=== PATIENT | female | born 1975 | race Caucasian/White ===

== ENCOUNTER → 2020-05-11 08:23 | Outpatient (CLI) | payer OTHER, SELFPAY ==
[2020-05-11 11:25] LABS: COVID19 -Nasal RAPID Negative (Negative)
--- NOTE | 2020-05-14 13:29 | CM.DANOTE ---
DCP: Case received, EMR reviewed and met with patient. Introduced self and role. Was able to obtain information from patient regarding her baseline activity level prior to hospitalization. DCP assessment completed with information currently available. Patient is a 45 year old female who admitted yesterday morning to the care of the orthopedic team. PCP: Dr. Youngblood. Payer: confirmed: [facility]. Patient came to the hospital via private vehicle for a surgical procedure. She had L4-5 Posteo-lateral and interbody fusion. Patient has history of spinal stenosis. Met with patient in her room. She was sitting up on the edge of the bed, Rahul Morales was in the room working with her, and , Curly was also present, and stated that he will be taking a couple of weeks off of work to help out. Patient is independent, stated, my pain is mostly dull. She resides in [place], and is employed at the [employer]. P: Patient is to be discharged home today. Tasha Coates RN/Pollution Control Chemist
== END ==
PROVIDERS: PCP Family Medicine; Visit Provider Physician Assistant
DX: Z11.59 Encounter for screening for other viral diseases (principal)
CPT/HCPCS: 87635

== ENCOUNTER 2020-05-13 10:49 | Day surgery (SDC) | payer OTHER, SELFPAY ==
[2020-05-12 07:19] VITALS: BMI 25.4
[2020-05-13] VITALS (20 sets, daily range): BP systolic 93–125; BP diastolic 50–80; PULSE 68–93; RESP 10–18; TEMP 36.2–37.6; O2SAT 92–100; BMI 25.7
--- NOTE | 2020-05-13 | DI.RAD.S_ITS ---
PROCEDURE: XR LUMBAR SPINE 2-3V INDICATIONS: L4-5 TLIF TECHNIQUE: A total of 2 views of the lumbar spine were acquired. COMPARISON: None. FINDINGS: Bones: 5 owg-hlo-cynyvin vertebrae are present. There is normal bony alignment maintained by transverse pedicle screws and vertical fixation rods crossing L4-L5. Additionally an interbody disc cage prosthesis is present at this level.. No vertebral body compression fractures. No suspicious bony lesions. Soft tissues: Overlying bowel gas pattern is normal. No suspicious soft tissue calcifications. IMPRESSION: Excellent anatomic alignment established after posterior fusion procedure at L4-L5 and also interbody cage disc prosthesis. Dictated by: Justin Magallon M.D. on 05/13/2020 at 16:40 Approved by: Justin Magallon M.D. on 05/13/2020 at 16:41
[2020-05-13] MEDS: LACTATED RINGERS 1,000 ML 42 ML IV ×2 (11:15→14:30)
--- NOTE | 2020-05-13 12:29 | PM.PREOP ---
Pre-operative Note COVID-19 COVID-19 status: Negative Result date/Date tested (Pos, Neg/Pending): 05/11/20 Interval Note History & Physical reviewed/Exam performed by Physician: Yes Changes to H&P: No
[2020-05-13] MEDS: CEFAZOLIN 2 GM/100 ML FROZ.PIGGY IV ×2 (13:06→21:09)
--- NOTE | 2020-05-13 13:28 | SUR.OPER ---
Prone on spine table, head in foam head support, padded chest and pelvic supports, gel pad at knees, lower legs supported by pillows; nipples, genitalia and toes free of pressure, arms secured on foam padded arm boards at <90 degrees abduction. Tape over blanket at thigh secured to table.
[2020-05-13] MEDS: BUPIVACAINE 0.25% W/ EPI (PF) 10 ML VIAL 20 ML INJ (13:32)
[2020-05-13] MEDS: BUPIVACAINE LIPOSOME 266 MG/20 ML VIAL INJ (13:32)
--- NOTE | 2020-05-13 15:21 | P.OP_ITS ---
Operative Date/Time/Diagnoses Date of procedure: 05/13/20 Time of procedure: 12:21 Pre-op diagnosis: 1. L4-5 spinal stenosis 2. L4-5 spondylosis with radiculopathy Post-op diagnosis: same Procedure & Clinicians Procedure: 1. L4-5 Postero-lateral and posterior interbody fusion 2. L4-5 interbody cage placement. 3. L4-5 decompressive laminectomy with bilateral facetecomies 4. L4-5 Posterior non-segmental instrumentation 5. Wetmore of bone marrow from iliac crest 6. Utilization of microsurgical technique and operating microscope Same procedure as scheduled: Yes Indications: Patient has been having chronic back pain and worsening lumbar radiculopathy. Patient failed multiple conservative management with worsening pain weakness and numbness in her lower extremity. Patient has been having difficulty performing activity of daily living. After discussing risks benefits of treatment options, patient elected proceed with surgery. Surgeon: Sil Wynn Studio Couch Frame Builder: Lesly Velasquez Click Yes if Unassisted: No Anesthesia Type: General Operative Notes Closure Type: primary Specimen(s): none sent Prosthetic devices, grafts, tissues, transplants, or devices: Globus revolve screws, Rise cage Estimated Blood Loss (mL): 50 Blood products transfused: none Procedure in detail: Patient was seen in the preoperative area. Risks and benefits of the surgery was discussed with the patient. Informed consent was obtained from the patient and placed in the chart. Surgical site was marked. Patient was taken to the operative room. General anesthesia was administered. Prophylactic antibiotic was given to the patient less than 30 min before the incision was made. Patient was placed into a prone position on the Constantino table. Patient's back was then prepped and draped in the sterile fashion. Time- out was performed at this time. Using AP and lateral C-arm imaging the interval between L4-5 was identified and marked on patient's back. A 2 inch incision 2 in from midline was made on the right side first. The fascia was incised in line with skin incision. Globus MARS retractors was placed inside the incision and docked onto the L4 lamina. Using microsurgical technique and operating microscope, a L4 laminectomy and L4- 5 facetectomy was performed using a Kerrison rongeur. Bilateral L4 and L5 nerve roots were decompressed during the process of the laminectomy and facetectomy. Patient was found have severe neural foramen stenosis and moderate central stenosis. The stenosis was fully decompressed after the laminectomy and facetectomy was completed. The total facetectomy at L4-5 level rendered the L4- 5 level grossly unstable and require fusion procedure at the same time. The disc space at L4-5 was identified. And a total diskectomy was performed at L4-5 level. The endplates were decorticated using a rasp and shaver. The total diskectomy and decortication was performed at L4-5 level in order to to accomplish a L4-5 fusion. The local bone from the laminectomy and facetectomy was saved for local bone grafting. After the total diskectomy and decortication was completed, Trifecta bone graft material was combined with local bone that was harvested earlier. At this time, a separate skin is incision was made over the iliac crest. A Jamshidi needle was inserted into the iliac crest through a separate skin incision. 5 cc of bone marrow aspiration was obtained through the separate skin incision using a Jamshidi needle from the iliac crest. The bone marrow aspiration was combined with local bone and the Trifecta bone grafting material. The bone grafting material was placed into the L4-5 interbody space along with a expandable cage. The cage was expanded to its maximum height using the torque limiting screwdriver. At this time a mirror image incision was made on the left side. The fascia was incised in line with the skin incision. Globus MARS retractor was inserted and docked onto the L4-5 posterolateral gutter. Using the power drill, posterior- lateral decortication was performed at L4-5 level until bleeding cortical bone was identified. The remaining bone grafting material was placed into the L4-5 posterior lateral gutter he order to accomplish posterolateral fusion at the L4- 5 level. Using the double C-arm technique, pedicle screws were placed into the L4-5 pedicles bilaterally. This was done by placing the Jamshidi needle into the pedicles, then placing the guidewires over the Jamshidi needle, and finally placing the cannulated screws over the guidewires bilaterally. After the pedicle screws were placed, 2 titanium rods was locked into the heads of the pedicle screws using locking caps and torque limiting screwdriver. After all the hardware was placed, and confirmed with AP and lateral C-arm imaging, the wound was then irrigated with sterile normal saline and packed with Ray-William gauze for 3 min to accomplish hemostasis. After the gauze was removed the deep fascia was closed with #1 Vicryl suture. The subcutaneous layer was closed with 2-0 Vicryl. The skin was closed with skin oumar. Patient tolerated the procedure well. There were no complications. Complications: none Post-operative Condition: stable Disposition: PACU Plan for aftercare: Admit to inpatient hospital
[2020-05-13] MEDS: HYDROMORPHONE 2 MG INJ IV ×4 (15:40→16:37)
[2020-05-13] MEDS: hydrOXYzine 50 MG/ML INJ 25 MG IM (15:41)
[2020-05-13] MEDS: ONDANSETRON 4 MG/2 ML INJ IV (15:51)
[2020-05-13] MEDS: fentaNYL 100 MCG/2 ML INJ IV ×2 (15:51→16:09)
[2020-05-13] MEDS: MORPHINE 10 MG/ML INJ 4 MG IV (16:47)
[2020-05-13] MEDS: HYDROCODONE/ACET 5/325 TABLET 2 TAB PO ×2 (18:10→22:09)
[2020-05-13] MEDS: SODIUM CHLORIDE 0.9% 1,000 ML 100 ML IV (18:11)
[2020-05-13] MEDS: SENNOSIDES 8.6 MG TABLET 17.2 MG PO (21:08)
[2020-05-13] MEDS: DOCUSATE 100 MG CAPSULE PO (21:08)
[2020-05-13] MEDS: HYDROMORPHONE 0.5 MG INJ IV (21:08)
--- NOTE | 2020-05-13 21:56 | PC.ADMIT ---
[id number] [facility], [place] Admission Note: The patient,Deanna Aponte,45 y/o, was given written information regarding hospital policies, unit procedures and contact persons. Patient's smoking status: Current every day smoker. Pt arrived to room 211 at approx 1730. A/o. Drsg c/d/i. Trans to chair upon arrival. Steady on feet. Oriented to room and call system. Pt verbalized she will call for needs. Vital Signs - 8 hr 05/13/20 15:29 05/13/20 15:35 05/13/20 15:39 Temperature 97.1 F L Pulse Rate 93 H 79 83 Respiratory Rate 16 13 11 L Blood Pressure 112/64 93/58 L 100/50 L Pulse Oximetry 95 93 96 05/13/20 15:44 05/13/20 15:49 05/13/20 15:55 Temperature Pulse Rate 79 79 82 Respiratory Rate 13 13 10 L Blood Pressure 98/65 104/69 110/72 Pulse Oximetry 97 98 100 05/13/20 15:59 05/13/20 16:04 05/13/20 16:09 Temperature Pulse Rate 75 75 75 Respiratory Rate 11 L 10 L 11 L Blood Pressure 119/63 116/75 118/71 Pulse Oximetry 100 100 100 05/13/20 16:15 05/13/20 16:30 05/13/20 16:45 Temperature 98.2 F Pulse Rate 68 83 76 Respiratory Rate 12 13 14 Blood Pressure 123/75 117/73 125/80 Pulse Oximetry 100 98 99 05/13/20 17:00 05/13/20 17:15 05/13/20 17:30 Temperature 98.8 F 99.7 F H Pulse Rate 84 87 84 Respiratory Rate 18 18 16 Blood Pressure 103/74 104/69 122/76 Pulse Oximetry 99 99 92 05/13/20 18:00 05/13/20 18:30 05/13/20 19:37 Temperature 99.3 F 99.0 F 99.4 F Pulse Rate 81 75 77 Respiratory Rate 16 16 16 Blood Pressure 96/68 108/69 108/64 Pulse Oximetry 94 96 97 05/13/20 20:35 Temperature 98.7 F Pulse Rate 83 Respiratory Rate 16 Blood Pressure 111/59 L Pulse Oximetry 92
[2020-05-14 00:57] VITALS: BP 114/66; PULSE 67; RESP 16; TEMP 37.1; O2SAT 95
[2020-05-14] MEDS: HYDROCODONE/ACET 5/325 TABLET 2 TAB PO ×3 (02:10→09:36)
[2020-05-14] MEDS: CEFAZOLIN 2 GM/100 ML FROZ.PIGGY IV (05:50)
[2020-05-14] MEDS: SODIUM CHLORIDE 0.9% 1,000 ML 100 ML IV (05:50)
[2020-05-14 05:54] VITALS: BP 93/56; PULSE 73; RESP 16; TEMP 37.4; O2SAT 96
--- NOTE | 2020-05-14 07:40 | PM.PN.1 ---
Subjective Subjective Date Patient Seen: 05/14/20 Time Patient Seen: 07:40 Interval history: Patient is POD#1 s/p L4-[address] Wynn. Pain has been controlled with Oxycodone. She has been mobilizing about the room. She is voiding appropriately and tolerating a diet. She has no complaints. Exam Vital Signs (past 8 hours): - 05/14/20 00:57 05/14/20 05:54 Temperature 98.8 F 99.3 F Pulse Rate 67 73 Respiratory Rate 16 16 Blood Pressure 114/66 93/56 L Pulse Oximetry 95 96 Oxygen Delivery Method Room Air Oxygen Flow Rate 0 Narrative Exam Narrative: 45 year old female walking about the room, alert and oriented in no acute distress. Dressing over lumbar spine is CDI. 5/5 BLE. Calves are soft, nontender bilaterally. Sensation intact. Assessment & Plan Assessment & Plan narrative: Patient doing well POD#1 s/p TLIF. She will work with PT today. Reviewed Lspine restrictions. Will convert dressing to Coversite prior to discharge. She may resume Pradaxa at home tomorrow for DVT prophylaxis. Prescription of oxycodone provided for postop pain. Discharge to home later today. Follow up as scheduled 2 weeks postop.
[2020-05-14 08:00] VITALS: BP 103/66; PULSE 84; RESP 14; TEMP 37.5; O2SAT 96
[2020-05-14] MEDS: DOCUSATE 100 MG CAPSULE PO (08:46)
[2020-05-14] MEDS: SERTRALINE 50 MG TABLET 100 MG PO (08:46)
[2020-05-14] MEDS: FOLIC ACID 1 MG TABLET PO (08:46)
--- NOTE | 2020-05-14 09:25 | OT.IP.EVAL ---
Current Diagnoses Spondylosis without myelopathy or radiculopathy, lumbar region (05/13/20) Spinal stenosis, lumbar region without neurogenic claudication (05/13/20) Intervertebral disc disorders with radiculopathy, lumbar region (05/13/20) Surgery Performed Operation Date: 05/13/20 12:15 Actual Procedures p L4-5 TLIF - Sil Wynn MD Past Medical History (Last Updated 05/12/20 @ 08:15 by Carmel Workman, RN) Depression (Acute) DVT (deep venous thrombosis) (Acute 2014) ETOH abuse (Acute) Sciatica (Acute) Surgical History (Last Updated 05/12/20 @ 08:14 by Carmel Workman RN) History of right salpingo-oophorectomy (Acute 2014) Hx of removal of cyst (Acute 2014) Hx of tubal ligation (Acute 2005) S/P epidural steroid injection (Acute) Occupational Therapy Inpatient Evaluation/Re-Eval M1 PT/OT-IP Prior Functional Status Start: 05/14/20 09:47 Freq: NEEDED Status: Active Protocol: Document 05/14/20 09:48 [facility] (Rec: 05/14/20 10:04 [facility] [id number]) Medical Review Prior Functional Status Medical History Reviewed Yes Communication Independent. Mobility and Gait Independent with did not use a device. Activities of Daily Living and IADL's COmpletely independent with all ADL's and IADL's need but lately needing increased time due to pain. Prior Functional Level (Other details) Pt works for the [employer] and lately on 10-lb lifting restriction. Social History Household Members spouse Living Arrangements Mobile home Number of Stairs To Enter/Railing? One 6 inch wide step and threshold of the door to the mobile home. Home Environment Standard Height Toilet,Walk in Shower,Tub/Shower Home Equipment Front Wheel Walker,Scallop Binder, Sock Aid,Grab Bars In Shower Additional Social History Comment Built in seat in the shower M2 OT-IP Current Condition Start: 05/14/20 09:47 Freq: Status: Active Protocol: Document 05/14/20 09:48 [facility] (Rec: 05/14/20 10:04 [facility] [id number]) Occupational Therapy Current Condition Current Condition Evaluation Date 05/14/20 Treatment Diagnosis S/p L4-5 TLIF Diagnosis Onset Date 05/13/20 Post Operative Precautions Lumbar Precautions Log Roll,No Twisting,Limit Bending,Lifting Restriction of 10 lbs,Gait Belt above Incisional Area M3 OT- IP Subjective and Pain Start: 05/14/20 09:47 Freq: Status: Active Protocol: Document 05/14/20 09:48 [facility] (Rec: 05/14/20 10:04 [facility] [id number]) OT- Subjective Occupational Therapy Visit Type Type Initial Evaluation Visit Start Time 08:48 Visit Stop Time 09:25 Total Visit Minutes 37 Occupational Therapy Visit Comments Patient Comments Pt's in the room and pt ready to use the bathroom and get dressed. Patient/Caregiver Goals TO go home. OT Pain Assessment Pain When Pain Assessed At Rest Pain Present Pain Present Pain Reported Location back Intensity 3 Scale Used Numeric (0 - 10) M4 OT- IP ADL's Start: 05/14/20 09:47 Freq: Status: Active Protocol: Document 05/14/20 09:48 [facility] (Rec: 05/14/20 10:04 [facility] [id number]) OT ETR-Dpeu-Abuoohb Comments OT Self-Feeding Comments NOt at meal time. OT ADL-Grooming General Evaluation Grooming Ability Independent Areas Needing Assistance Retrieving/Set-up of Grooming Items OT ADL-Oral Care General Eval Oral Care Ability Standby Assistance Areas of Assistance Retrieving/Set-Up of Items Comments Oral Care Comments Set-up and initial vc to hinge at her hips when spitting. OT ADL-Dressing General Eval Upper Body Dressing Ability Independent Lower Body Dressing Ability Minimal Assistance Areas Needing Assistance Support Stockings Comments OT Dressing Comments Pt needing assist for compression socks, which her will assist. Pt issued long handle shoe horn OT ADL-Toileting General Evaluation Toileting Ability Independent Comments OT Toileting Comments Pt able to reach for all pericare need with good follow through of back precautions. OT ADL-Bathing Comments OT Bathing Comments NOt performed. M5 OT- IP IADL's Start: 05/14/20 09:47 Freq: Status: Active Protocol: Document 05/14/20 09:48 [facility] (Rec: 05/14/20 10:04 [facility] [id number]) OT-Instrumental Activities of Daily Living Home Safety Awareness Awareness of Need for Assistance at Home Good Awareness Ability to Problem Solve Emergency Able to Problem Solve Situations Medication Management Medication Management Comments Pt's aware that she is little groggy and states her will assist her as needed. Money Management Money Management Comments Pt's aware that she is little groggy and states her will assist her as needed. Meal Preparation Meal Preparation Caregiver Provides Assist Bolt Threader Bolt Threader Caregiver Provides Assist M6 OT- IP Functional Cognition Start: 05/14/20 09:47 Freq: Status: Active Protocol: Document 05/14/20 09:48 [facility] (Rec: 05/14/20 10:04 [facility] [id number]) Cognitive Factors Limiting Selfcare Function Cognitive Ability Level of Alertness Alert Patient Orientation Name,Place,Situation Attention Span Ability Capable of Focused Attention, Capable of Sustained Attention Ability to Follow Commands Able to Follow One Step Commands Safety Awareness Decreased Ability to Apply Precautions,Underestimates Need for Assistance Cognitive Comments Cognitive Assessment Comments Pt needing vc to slow down and incorporate back precautions during Adl and mobility needs. Pt tends to want to twist. OT- Vision and Hearing OT- Hearing Assessment OT- Hearing Assessment WFL OT- Vision Assessment Visual Acuity WFL M7 OT- IP Mobility and Balance Start: 05/14/20 09:47 Freq: Status: Active Protocol: Document 05/14/20 09:48 [facility] (Rec: 05/14/20 10:04 [facility] [id number]) OT- Bed Mobility Assessment Rolling Type of Rolling Roll to Right Level of Assistance Standby Assistance Supine to Sit Supine to Sit Assist Standby Assistance Sit to Supine Sit to Supine Assist Standby Assistance OT-Transfer Assessment Sit to and From Stand Sit to and from Stand Standby Assistance Transfers Transfer Ability Standby Assistance Technique Transfer Destination Bed,Chair,Toilet Transfer Technique Stand Step Pivot Devices Transfer Assistive Devices None,Gait Belt,Front Wheeled Walker Comments Mobility Comments Pt needing initial vc to hinge at her hips to stand and push up from the surfaces sitting on before coming to stand. Pt needing step by step instructions fro log rolling at this time. OT- Gait Assessment Comments Gait Ability Comments SBA with FWW, pt did take some steps in the room with close SBA, but encouraged to use the FWW especially for uneven surfaces and longer distances. OT- Balance Assessment Sitting Balance and Reactions Static Sitting Balance Ability Normal Dynamic Sitting Balance Ability Normal Standing Balance and Reactions Static Standing Balance Ability Good Dynamic Standing Balance Ability Fair M8 OT- IP Objective Assessments Start: 05/14/20 09:47 Freq: Status: Active Protocol: Document 05/14/20 09:48 [facility] (Rec: 05/14/20 10:04 [facility] [id number]) OT Gross Range of Motion Upper Extremity Range of Motion ROM Impairments WFl for dressing needs. OT-Muscle Tone Assessment Muscle Tone WNL Yes M9 OT- IP Assessment and Plan Start: 05/14/20 09:47 Freq: Status: Active Protocol: Document 05/14/20 09:48 [facility] (Rec: 05/14/20 10:04 [facility] [id number]) OT Summary Assessment and Plan Potential Rehabilitation Potential Excellent Analytic Complexity at Evaluation Low Summary OT Impairments Pain,Functional Cognition, Functional Mobility,Dressing, Bathing,Shower Transfers Progress Towards Goals Progressing Toward Goals Assessment Summary Pt low complexity and main barrier are needing to slow down to incorporate back precautions for needs, step to get into the truck, compression stocking, and step to get into the house. Pt has a supportive that will be there to assist for the first 2 weeks. Pt's has participated in caregiver training to carlos/ doff gait belt and how to assist pt for ADl needs and mobility. Pt to go home when medically stable. Goals Bathing Goal Independent Shower Transfer Goal Independent Patient/Caregiver Education Goal Demonstrate Post-Op Precautions,Caregiver Independent Assisting Patient Days to Meet Goals 1 Frequency of Treatment Frequency Of Treatment Once a Day Treatment Plan OT Treatment Plan ADL Training,Functional Cognition Training,Functional Mobility,Patient/Family Education,Discharge Planning Other Treatment Recommendations and Next shower if still here Treatment Focus Discharge Recommendations OT Discharge Recommendations Home with Assistance Home Equipment Needs BSC versus RTS, long handled shoe horn issued Transportation Needs at Discharge Private Vehicle
--- NOTE | 2020-05-14 09:30 | PT.IIE ---
Current Diagnoses Spondylosis without myelopathy or radiculopathy, lumbar region (05/13/20) Spinal stenosis, lumbar region without neurogenic claudication (05/13/20) Intervertebral disc disorders with radiculopathy, lumbar region (05/13/20) Surgery Performed Operation Date: 05/13/20 12:15 Actual Procedures p L4-5 TLIF - Sil Wynn MD Surgical History (Last Updated 05/12/20 @ 08:14 by Carmel Workman, RN) History of right salpingo-oophorectomy (Acute 2014) Hx of removal of cyst (Acute 2014) Hx of tubal ligation (Acute 2005) S/P epidural steroid injection (Acute) Medical History (Last Updated 05/12/20 @ 08:15 by Carmel Workman RN) Depression (Acute) DVT (deep venous thrombosis) (Acute 2014) ETOH abuse (Acute) Sciatica (Acute) Physical Therapy Inpatient Evaluation/Re-Eval M1 PT/OT-IP Prior Functional Status Start: 05/14/20 09:47 Freq: NEEDED Status: Discharge Protocol: Document 05/14/20 09:48 [facility] (Rec: 05/14/20 10:04 [facility] [id number]) Medical Review Prior Functional Status Medical History Reviewed Yes Communication Independent. Mobility and Gait Independent with did not use a device. Activities of Daily Living and IADL's COmpletely independent with all ADL's and IADL's need but lately needing increased time due to pain. Prior Functional Level (Other details) Pt works for the [employer] and lately on 10lb lifting restriction. Social History Household Members spouse Living Arrangements Mobile home Number of Stairs To Enter/Railing? One 6 inch wide step and threshold. Home Environment Standard Height Toilet,Walk in Shower,Tub/Shower Home Equipment Front Wheel Walker,End Touching Machine Operator, Sock Aid,Grab Bars In Shower Additional Social History Comment Built in seat in the shower M1 PT/OT-IP Prior Functional Status Start: 05/14/20 12:22 Freq: NEEDED Status: Active Protocol: Document 05/14/20 09:30 AB (Rec: 05/14/20 12:31 AB [id number]) Medical Review Prior Functional Status Medical History Reviewed Yes Communication able to make needs known Mobility and Gait pt stated that she is independent with all mobilities and ambulation without AD Social History Household Members spouse Living Arrangements Mobile home Number of Floors (Floors) One Floor Number of Stairs To Enter/Railing? 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 M2 PT-IP Current Condition Start: 05/14/20 12:22 Freq: NEEDED Status: Active Protocol: Document 05/14/20 09:30 AB (Rec: 05/14/20 12:31 AB [id number]) Physical Therapy Current Condition Current Condition Evaluation Date 05/14/20 Treatment Diagnosis s/p L4-5 fusion/lami; difficulty in walking Onset Date 05/13/20 Precautions Lumbar Precautions Log Roll,No Twisting,Limit Bending,Lifting Restriction of 10 lbs,Gait Belt above Incisional Area M3 PT-IP Subjective Start: 05/14/20 12:22 Freq: NEEDED Status: Active Protocol: Document 05/14/20 09:30 AB (Rec: 05/14/20 12:31 AB [email or web address]) Subjective Physical Therapy Visit Type Type Initial Evaluation Visit Start Time 09:30 Visit Stop Time 09:51 Total Visit Minutes 21 Number of SUPERVISOR PRESS ROOM Visits 0 Physical Therapy Visit Comments Patient Comments pt is agreeable to do PT Therapy Pain Assessment Pain When Pain Assessed At Rest Pain Present Pain Present Pain Reported Location back Intensity 4 Scale Used Numeric (0 - 10) Pain Management Techniques Apply Cold,Distraction, Modification of Treatment,Re- positioning,Timing of Activity with Medications M4 PT-IP Mobility and Gait Start: 05/14/20 12:22 Freq: NEEDED Status: Active Protocol: Document 05/14/20 09:30 AB (Rec: 05/14/20 12:31 AB [id number]) PT-Bed Mobility Assessment Rolling Type of Rolling Log Rolling Level of Assist Standby Assistance Supine to Sit Supine to Sit Standby Assistance Sit to Supine Sit to Supine Minimal Assistance Scooting Scooting to Edge of Bed Standby Assistance PT-Transfer Assessment Sit to and From Stand Sit to and from Stand Standby Assistance Equipment Transfer Assistive Device Gait Belt,Front Wheeled Walker Orthotic/Prosthetic Devices or Brace: No Transfers Transfer Destination Bed,Chair Transfer Technique Stand Step Pivot Transfer Ability Level of Assist Standby Assistance,Use of Upper Extremities Comments Mobility Comments completed sit to stand from chair SBA. transferred to bed SBA using FWW and completed sit<>supine x 2 reps with initial cues for log roll but able to complete without cues on 2nd set. spouse assisted pt with supine to sit and was able to complete safely. pt ambulated ~ 100 ft and completed up/down platform step SBA with spouse stabilizing FWW. pt ambulated back to her room using FWW SBA and sat back on chair. positioned pt on chair. call light and table placed within reach. Gait Assessment Gait Gait Assistance Required: Standby Assistance Distance (Feet) 100 Able to Maintain Weight Bearing Status Yes During Gait Assistive Devices Assistive Device Gait Belt,Front Wheeled Walker Orthotic/Prosthetic Devices or Brace: No Factors Limiting Gait Function Factors Limiting Gait Function Decreased Activity Tolerance, Decreased Strength,Limited Range of Motion,Pain,Poor Balance Stair Climbing Assessment Evaluation Level of Assist On Stairs Standby Assistance Devices Stair Climbing Assistive Devices Front Wheel Walker Technique/Endurance Stair Climbing Direction Ascend and Descend Stair Climbing Technique Step to Step Number of Steps Climbed 1 Query Text: Stair Climbing Set # Repetitions (reps) 1 PT-Balance Assessment Sitting Balance and Reactions Static Sitting Balance Ability Good Dynamic Sitting Balance Ability Good Standing Balance and Reactions Static Standing Balance Ability Fair Dynamic Standing Balance Ability Fair Device Used FWW M5 PT-IP Objective Assessments Start: 05/14/20 12:22 Freq: NEEDED Status: Active Protocol: Document 05/14/20 09:30 AB (Rec: 05/14/20 12:31 AB [id number]) Orientation Orientation/Cognition Level of Alertness Alert Orientation Name,Age,Birthday,Month,Date, Year,Day of Week,Place, Situation Language Function Ability No Deficits Noted Safety Awareness Understands Safety Issues Memory Description No Deficits Noted Gross Range of Motion Lower Extremity ROM Assessment Within Functional Limits Strength Lower Extremity Strength Assessment Within Functional Limits Coordination Assessment Gross Coordination Gross Coordination WNL Sensation Assessment Sensation Gross Sensation WNL Muscle Tone Muscle Tone WNL Yes M6 PT-IP Treatment Start: 05/14/20 12:22 Freq: NEEDED Status: Active Protocol: Document 05/14/20 09:30 AB (Rec: 05/14/20 12:31 AB [id number]) Physical Therapy Treatment Education Education Provided Precautions,Weight Bearing Status,Post-Op Packet,Safety M7 PT-IP Assessment and Plan Start: 05/14/20 12:22 Freq: NEEDED Status: Active Protocol: Document 05/14/20 09:30 AB (Rec: 05/14/20 12:31 AB [id number]) PT Summary Assessment and Plan Potential Rehabilitation Potential Good Status of Condition at Evaluation Stable Summary Progress Towards Goals Safe For Discharge Assessment Summary pt requiring SBA to min with mobility but spouse was able to assist pt safely. pt plans to go home and may go home when medically stable. Goals Bed Mobility Goal Independent Transfer Goal Independent,Front Wheeled Walker Gait Goal Independent,Front Wheel Walker Gait Distance 200 Other Goals up/down 1 step using FWW mod I Days to Meet Goals 3 Frequency of Treatment Frequency Of Treatment Twice a Day Treatment Plan Physical Therapy Treatment Plan Bed Mobility Training,Transfer Training,Gait Training, Therapeutic Exercise,Balance Retraining,Post Op Education, Discharge Planning,Hot or Cold Pack,Neuromuscular Re-ed, Coordination Retraining,Manual Therapy Recommendations To Nursing Amount of Assist Needed Standby Assistance Discharge Recommendations PT Discharge Recommendations Home with Assistance Transportation Needs at Discharge Private Vehicle
--- NOTE | 2020-05-14 10:04 | PC.NURSE ---
Went over dc instrcutions with patient, questions answered. Dressing to back changed two incisions intact with oumar no drainage or redness noted. Patient taken via wc to vehicle driven by spouse. Patient had all belongings.
--- NOTE | 2020-05-14 14:29 | PC.NURSE ---
Discharge: Pt feels ready to d/c home. Seen bt PT and given their instructions. Seen by PA and given instructions by them. Tolerates diet w/out problems. Po pain meds are effective. Vds w/out diff. D/c packet reviewed w/pt by Taina LEE. Pt d/c home via auto w/family.
== END 2020-05-14 10:05 | disposition home or self-care (01) ==
LOC: OR 10:52 → AC 10:52
PROVIDERS: PCP Family Medicine; Referring Provider Orthopaedic Surgery Orthopaedic Surgery of the Spine; Visit Provider Orthopaedic Surgery Orthopaedic Surgery of the Spine
PROC: (CPT 22633; principal; 2020-05-13 12:15)
DX: M48.061 Spinal stenosis, lumbar region without neurogenic claudication (principal); M47.816 Spondylosis without myelopathy or radiculopathy, lumbar region; M51.16 Intervertebral disc disorders with radiculopathy, lumbar region; F17.210 Nicotine dependence, cigarettes, uncomplicated
CPT/HCPCS: 22633; 20939; 63047; 22853; 22840; 72100; 76000; 97161; 97165; 97535; C1776; C9290; J0330; J0690; J1100; J1170; J2270; J2405; J2704; J3010; J3410